=== PATIENT | female | born 1965 | race Caucasian/White ===

== ENCOUNTER 2016-06-27 20:53 | Emergency (ER) | payer OTHER ==
[~2016-06-27] VITALS: Ht 162.6 cm; Wt 63.0 kg
[~2016-06-27 20:53] MED LIST: CETI10 PO; CYMB60CA PO; GABA300C3 PO; RISP0.5T2 PO; ROBA750T3 PO; TRAM50TA PO
[2016-06-27 20:57] VITALS: BP 140/101; PULSE 99; RESP 18; TEMP 98.6; O2SAT 97
--- NOTE | 2016-06-27 21:45 | RADRPT ---
EXAM DATE/TIME: 06/27/2016 21:41 [place] COMPARISON: No previous studies available for comparison. INDICATIONS : Patient complains of left sided chest pain that radiates into left shoulder. MEDICAL HISTORY : None. SURGICAL HISTORY : None. ENCOUNTER: Initial ACUITY: 1 day PAIN SCORE: 10/10 LOCATION: Left chest FINDINGS: A single view of the chest demonstrates the lungs to be symmetrically aerated without evidence of mas s, infiltrate or effusion. The cardiomediastinal contours are unremarkable. Osseous structures are intact. CONCLUSION: No evidence of acute cardiopulmonary disease. Diego Fuentes MD on June 27, 2016 at 21:42 Board Certified Radiologist. This report was verified electronically.
[2016-06-27] MEDS ORDERED: KETOROLAC TROMETHAMINE 30 MG/ML (IVP) VIAL IV PUSH ONE (22:45)
[2016-06-27] MEDS ORDERED: ORPHENADRINE INJ 60 MG/2 ML AMP IM ONE (22:45)
[2016-06-27 22:58] LABS: AUTOMATED NEUTROPHIL # 6.1 TH/MM3 (1.8-7.7); BASOPHIL # 0.1 TH/MM3 (0-0.2); BASOPHIL % 0.8 % (0.0-2.0); EOSINOPHIL # 0.2 TH/MM3 (0-0.4); HEMATOCRIT 45.8 % (35.0-46.0); HEMO FLAGS DIFF FINAL; LYMPH % 26.4 % (9.0-44.0); LYMPHOCYTE # 2.5 TH/MM3 (1.0-4.8); MEAN CELL VOLUME 104.6 FL (80.0-100.0); MEAN CORPUSCULAR HEMOGLOBIN 36.4 PG (27.0-34.0); MEAN CORPUSCULAR HGB CONC 34.8 % (32.0-36.0); MONO % 6.2 % (0.0-8.0); NEUT % 64.6 % (16.0-70.0); PLATELET COUNT 246 TH/MM3 (150-450); RED BLOOD COUNT 4.38 MIL/MM3 (4.00-5.30); RED CELL DISTRIBUTION WIDTH 12.7 % (11.6-17.2); WHITE BLOOD COUNT 9.4 TH/MM3 (4.0-11.0)
[2016-06-27 23:19] LABS: ANION GAP 9 MEQ/L (5-15); BICARBONATE 26.4 MEQ/L (21.0-32.0); BLOOD UREA NITROGEN 6 MG/DL (7-18); CHLORIDE 106 MEQ/L (98-107); GLOMERULAR FILTRATION RATE 116 ML/MIN (>89); POTASSIUM 3.6 MEQ/L (3.5-5.1); SODIUM (NA) 141 MEQ/L (136-145)
[2016-06-27 23:25] LABS: CREATINE KINASE 50 U/L (26-192)
[2016-06-27] MEDS ORDERED: ROBA750T PO (23:54)
[2016-06-27] MEDS ORDERED: MOBI15TA PO (23:54)
--- NOTE | 2016-06-27 23:55 | PD ---
HPI Chief Complaint: Pain: Acute or Chronic Time Seen by Provider: 22:34 Travel History International Travel<30 days: No Contact w/Intl Traveler<30days: No Traveled to known affect area: No History of Present Illness HPI 50-year-old female complains of left-sided chest pain. Patient states the pain started earlier today. Patient states the pain is sharp stabbing pain worse with deep breathing and movement of the left arm. Patient has a cough recently. Patient stated copies mildly productive. Patient was seen by personal physician yesterday and put on amoxicillin for that. Patient denies any history hypertension, diabetes, dyslipidemia. Patient is a smoker. Patient has history of chest pain in the past and had the stress test done in January last year and was normal. Patient has history of chronic back pain from DJD. On a scale of 1-10 the pain is a 10. PFSH Past Medical History Asthma: Yes Anxiety: Yes Depression: Yes Cardiovascular Problems: Yes (Hx Mitrovalve prolapse per patient.) Diabetes: No Diminished Hearing: No Headaches: Yes Musculoskeletal: Yes (CHRONIC PAIN, BULGING DISC BACK , RIGHT ARM AND RIGHT SHOULDER) Psychiatric: Yes (NON COMPLIANCE WITH MEDICATION) Thyroid Disease: Yes ?: Not : 2 Para: 1 Miscarriage: 0 : 1 Past Surgical History Gynecologic Surgery: Yes (BREAST AUGMENTATION) Social History Alcohol Use: Yes (3-4 beers a week usually/Fri was 7 beers.) Tobacco Use: Yes (1/2PPD) Substance Use: Yes (DRINKS ALCOHOL DAILY) Allergies-Medications (Allergen,Severity, Reaction): Coded Allergies: Celexa (Verified Allergy, Severe, SWELLING AND RASH, 07/06/13) Reported Meds & Prescriptions Reported Meds & Active Scripts Active Tramadol Hcl (Tramadol HCl) 50 Mg Tab 50-100 Mg PO DAILY PRN Gabapentin 300 Mg Cap 300 Mg PO BID Robaxin-750 (Methocarbamol) 750 Mg Tab 750 Mg PO TID Cetirizine Hcl 10 Mg Tab 10 Mg PO QD Reported Risperdal (Risperidone) 0.5 Mg Tab 0.5 Mg PO BID Cymbalta (Duloxetine Hcl) 60 Mg Cap 60 Mg PO DAILY Review of Systems General / Constitutional: No: Fever Eyes: No: Visual changes HENT: No: Headaches Cardiovascular: Positive: Chest Pain or Discomfort Respiratory: No: Shortness of Breath Gastrointestinal: No: Abdominal Pain Genitourinary: No: Dysuria Musculoskeletal: No: Pain Skin: No Rash Neurologic: No: Weakness Psychiatric: No: Depression Endocrine: No: Polydipsia Hematologic/Lymphatic: No: Easy Bruising Physical Exam Narrative GENERAL: Well-nourished, well-developed patient. SKIN: Focused skin assessment warm/dry. HEAD: Normocephalic. EYES: No scleral icterus. No injection or drainage. NECK: Supple, trachea midline. No JVD or lymphadenopathy. CARDIOVASCULAR: Regular rate and rhythm without murmurs, gallops, or rubs. RESPIRATORY: Breath sounds equal bilaterally. No accessory muscle use. GASTROINTESTINAL: Abdomen soft, non-tender, nondistended. MUSCULOSKELETAL: No cyanosis, or edema. Patient had reproducible chest pain on palpation left anterior chest wall area, left upper back area. No redness swelling no deformity no rash noted. No chest wall crepitus. Breath sounds equal bilaterally. Limited range of motion the left shoulder secondary to chest wall pain on movement of the left shoulder joint. BACK: Nontender without obvious deformity. No CVA tenderness. Neurologic exam normal. Data Data Last Documented VS Vital Signs Date Time Temp Pulse Resp B/P Pulse Ox O2 Delivery O2 Flow Rate FiO2 06/27/16 22:37 91 18 06/27/16 20:57 98.6 140/101 97 Room Air Orders Electrocardiogram (06/27/16 21:05) Chest, Single Ap (06/27/16 ) Complete Blood Count With Diff (06/27/16 22:40) Basic Metabolic Panel (Bmp) (06/27/16 22:40) Creatine Kinase (Cpk) (06/27/16 22:40) Troponin I (06/27/16 22:40) Ketorolac Inj (Toradol Inj) (06/27/16 22:45) Orphenadrine Inj (Norflex Inj) (06/27/16 22:45) Labs Laboratory Tests Test 06/27/16 21:55 White Blood Count 9.4 TH/MM3 Red Blood Count 4.38 MIL/MM3 Hemoglobin 16.0 GM/DL Hematocrit 45.8 % Mean Corpuscular Volume 104.6 FL Mean Corpuscular Hemoglobin 36.4 PG Mean Corpuscular Hemoglobin 34.8 % Concent Red Cell Distribution Width 12.7 % Platelet Count 246 TH/MM3 Mean Platelet Volume 8.9 FL Neutrophils (%) (Auto) 64.6 % Lymphocytes (%) (Auto) 26.4 % Monocytes (%) (Auto) 6.2 % Eosinophils (%) (Auto) 2.0 % Basophils (%) (Auto) 0.8 % Neutrophils # (Auto) 6.1 TH/MM3 Lymphocytes # (Auto) 2.5 TH/MM3 Monocytes # (Auto) 0.6 TH/MM3 Eosinophils # (Auto) 0.2 TH/MM3 Basophils # (Auto) 0.1 TH/MM3 CBC Comment DIFF FINAL Differential Comment Sodium Level 141 MEQ/L Potassium Level 3.6 MEQ/L Chloride Level 106 MEQ/L Carbon Dioxide Level 26.4 MEQ/L Anion Gap 9 MEQ/L Blood Urea Nitrogen 6 MG/DL Creatinine 0.55 MG/DL Estimat Glomerular Filtration 116 ML/MIN Rate Random Glucose 81 MG/DL Calcium Level 9.1 MG/DL Total Creatine Kinase 50 U/L Troponin I LESS THAN 0.02 NG/ML MDM Medical Decision Making Medical Screen Exam Complete: Yes Emergency Medical Condition: Yes Interpretation(s) Last Impressions Chest X-Ray 06/27/16 0000 Signed Impressions: Service Date/Time: Monday, June 27, 2016 21:41 - CONCLUSION: No evidence of acute cardiopulmonary disease. Diego Fuentes MD 11:52 PM. EKG shows sinus rhythm nonspecific ST-T wave changes. CBC within normal limit. BMP within normal limits. Cardiac enzymes are normal. Differential Diagnosis Differential diagnosis including musculoskeletal, costochondritis, angina, [place], PE, pneumothorax. Narrative Course 50-year-old female with left-sided chest pain, atypical. Toradol 30 mg IV. Norflex 60 mg IM. Diagnosis Primary Impression: Atypical chest pain Patient Instructions: General Instructions Additional Instructions: Take medications as directed for pain. Follow-up with personal physician. Return if increasing chest pain or shortness of breath. Med/Other Pt SpecificInfo: Prescription(s) given Scripts Methocarbamol (Robaxin)750 Mg [id number] Mg PO QID #40 TAB Prov:Pablo Pennington MD 06/27/16 Meloxicam (Mobic)15 Mg Tab15 Mg PO DAILY #20 TAB Prov:Pablo Pennington MD 06/27/16 Disposition: 01 DISCHARGE HOME Condition: Stable Pablo Pennington MD Jun 27, 2016 23:55
--- NOTE | 2016-06-28 17:31 | EKG ---
Date Performed: 06/27/2016 Time Performed: 21:14:54 PTAGE: 50 years EKG: Sinus rhythm POSSIBLE RIGHT ATRIAL ENLARGEMENT POSSIBLE LEFT ATRIAL ENLARGEMENT BORDERLINE ECG NO PREVIOUS TRACING DOCTOR: Liban Kong Interpretating Date/Time 06/28/2016 17:28:39
== END 2016-06-28 00:12 | disposition home or self-care (01) ==
LOC: NEPD 20:53
DX: R07.89 Other chest pain (principal)
CPT/HCPCS: 71010; 80048; 82550; 84484; 85025; 93005; 96372; 96374; 99285; J1885; J2360